=== PATIENT | male | born 1975 | race Caucasian/White ===

== ENCOUNTER 2016-11-01 18:28 | Observation (INO) | payer SELFPAY ==
--- NOTE | ~2016-11-01 | DS ---
Unit #: [id number] #: [id number] Patient: ELLYN BOOTH [id number] [address] [place], [place] [address] [id number] I MR#: [id number] NAME: ELLYN BOOTH. ROOM: [facility] Age: 40 Sex: M Admission Date: 11/02/2016 : 1975 Discharge Date: 11/02/2016 Attending Physician: Cj Mckeon M.D. Primary Care Physician: No Primary Care Physician DISCHARGE SUMMARY ADMITTING DIAGNOSES 1. Chest pain. 2. Probable obstructive sleep apnea. DISCHARGE DIAGNOSES 1. Noncardiac chest pain. 2. Aortic root dilation. 3. Probable obstructive sleep apnea. 4. Left ventricular hypertrophy. 5. Hypertension. PROCEDURES PERFORMED 1. Planned treadmill stress test, which he reached suboptimal performance with only 4 minutes of exercise. Stopping due to shortness of breath but no chest pain. No ischemia noted with EKG. 2. He completed a 2D echocardiogram, which showed a dilated aortic root, as well as some LVH. Otherwise normal. This is per Dr. Fernandez, as that report is not available to me at this time. HOSPITAL COURSE Mr. 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 It resolved many hours later, even after treatment in the emergency room. He was evaluated this morning by Dr. Fernandez who recommended a stress test, as well as 2D echocardiogram. These were completed as stated above. He is currently having no discomfort. I have explained to him the seriousness of the need to treat his sleep apnea, as well as need to treat hypertension. He voices understands. Currently he is feeling well with no complaints of chest pain or shortness of breath. Temperature 98.4, pulse 74, respirations 18, blood pressure 141/96, 99% oxygenated on room air. He is 370 pounds. PERTINENT LABS DURING HOSPITALIZATION Troponin less than 0.03 x2 and less than 0.05 x2 at point of care. D-Dimer 261. Sodium 136, potassium 4.2, glucose 96, BUN 14, creatinine 1.0, AST 21, ALT 27, albumin 4.1. Hemoglobin 14.8, hematocrit 44.8, platelets 294, and white blood cell count 9.5. DISCHARGE MEDICATION Lisinopril 10 mg daily. DISCHARGE INSTRUCTIONS 1. Low sodium diet. 2. Activity as tolerated. Unit #: [id number] #: [id number] Patient: ELLYN BOOTH FOLLOW VISIT With Dr. Mckeon in the next three to four weeks. He will need to follow up with Dr. Pollock with pulmonary for outpatient sleep study. I have also encouraged him to follow up with primary care for routine followup as well regarding his tolerance to the lisinopril and also to maintain medical compliance. Dictated by... Pablito Mcrae/rayna TD: 11/04/2016 09:48 JOB #: [id number] DISCHARGE SUMMARY Page 1 of 1 X X DISCHARGE SUMMARY
--- NOTE | ~2016-11-01 | EKG ---
PATIENT: ELLYN HUTCHISON UNIT #: [id number] Ventricular Rate: 79 BPM Atrial Rate: 79 BPM P-R Interval: 174 ms QRS Duration: 108 ms Q-T Interval: 382 ms QTC Calculation(Bezet): 438 ms P [place]: 28 degrees Calculated R [place]: 31 degrees Calculated T [place]: 42 degrees Diagnosis Line: Normal sinus rhythm Diagnosis Line: Normal ECG Diagnosis Line: No previous ECGs available Diagnosis Line: Confirmed by SHELLEY ZAMORA MD ([id number]) on Diagnosis Line: 11/05/2016 9:43:05 AM INTERPRETING MD: JEREMY
--- NOTE | ~2016-11-01 | ST ---
Unit #: [id number] #: [id number] Patient: ELLYN HUTCHISON [id number] [address] [address] [id number] I MR#: [id number] NAME: ELLYN HUTCHISON : 1975 SEX: M STUDY DATE/TIME: 11/02/2016 UNIT: [id number] ROOM: [facility] STUDY DESCRIPTION: Attending Physician: Cj Mckeon M.D. Primary Care Physician: No Primary Care Physician CARDIOLOGY REPORT EXAM Stress test. FINDINGS Baseline EKG: Normal sinus rhythm, nonspecific ST-T changes. Resting heart rate 70 per minute. Blood pressure 138/96. PROCEDURE This 40-year-old patient was exercised on a Baldomero protocol for 4 minutes and 7 seconds, achieving heart rate of 122 per minute which is less than the target heart rate. Peak blood pressure was 139/104, 160/120. Exercise was terminated because of fatigue. No ischemic change is noted. No arrhythmias noted. Blood pressure response was normal. INTERPRETATION Incomplete nondiagnostic exercise stress test due to failure to reach the target heart rate. Normal blood pressure response to exercise. No significant arrhythmias noted. Dictated by... Maira Ramirez/bjorn TD: 11/02/2016 15:51 JOB #: [id number] CARDIOLOGY REPORT Page 1 of 1 X Diego Fernandez MD CARDIOLOGY REPORT
--- NOTE | ~2016-11-01 | BMI ---
[facility] Nutrition Therapy DATE: 11/02/16 Patient: ELLYN HUTCHISON Physician: EDER Address: [address] Room/Bed: [address] [place] [address], Zip: [place] [address] Admit Date: 11/02/16 Date of : [birth year] Height: 6 1 Weight: 370 168 HIGH BMI NOTE: ANTHROPOMETRICS: HT: 6'1" WT: 168 KG BMI: 48.9 DIET: NPO RECOMMENDATIONS: 1. ONCE MEDICALLY FEASIBLE, ADVANCE THE PT TO A HEART HEALTHY DIET TO PROMOTE GRADUAL WEIGHT LOSS TOWARDS A HEALTHY BMI RANGE. Respectfully, AKILAH LIM RD, LD [facility] cc: client file
--- NOTE | ~2016-11-01 | CR72 ---
[facility] A Service of [facility] & [facility] RADIOLOGY TEXT RESULTS PATIENT: ELLYN HUTCHISON LOCATION: [facility] 322- : [birth year] UNIT #: [id number] AGE: [address]: Cj Mckeon MD SEX: M ORDER DR: [id number] [facility]. [place], [place] [address] [id number] I MR#: [id number] Acc #: [id number] NAME: ELLYN HUTCHISON : 1975 SEX: M STUDY DATE/TIME: 11/01/2016 22:11 UNIT: [address] ROOM: [facility] STUDY DESCRIPTION: CR Chest Single View Portable Attending Physician: Cj Mckeon M.D. Ordering Physician: Jean Marie Carroll D.O. Primary Care Physician: Primary Care Physician No MEDICAL IMAGING REPORT This report is preliminary unless electronic signature is present EXAM Portable chest INDICATION Left-sided chest pain today PROCEDURE Frontal view of the chest COMPARISON None FINDINGS Mild cardiomegaly. Lungs are clear. There is no visible pleural fluid or pneumothorax. IMPRESSION Mild cardiomegaly. No active process. Dictated by... Ben Breen M.D. THIS IS AN ELECTRONICALLY VERIFIED REPORT Ben Breen M.D. at 11/02/2016 10:13 PM Adolph TD: 11/02/2016 08:32 JOB #: [id number] MEDICAL IMAGING REPORT Page 1 of 1 COPY
--- NOTE | ~2016-11-01 | HP ---
Unit #: [id number] #: [id number] Patient: ELLYN BOOTH [id number] [address] [place], [place] [address] [id number] I MR#: [id number] NAME: ELLYN BOOTH. ROOM: 322 Age: 40 Sex: M Admission Date: 11/02/2016 : 1975 Attending Physician: Cj Mckeon M.D. Primary Care Physician: No Primary Care Physician HISTORY AND PHYSICAL PRIMARY CARE Dr. Vaz. CHIEF COMPLAINT Chest pain. 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 He has a history of smoking. He had some sharp pain in the left side of his chest while driving last evening. The pain was continuous and he presented to the emergency room approximately two hours later. He felt numb, weak and stiff all over during my interview this morning. This information is received from the patient as well as from record review. PRIOR CARDIAC TESTING HISTORY None. PAST MEDICAL HISTORY None. SOCIAL HISTORY He is a two-pack a day smoker for 20 years but quit three years ago. He was a 12 beer per night drinker until three years ago when he quit. He denies the use of drugs. FAMILY HISTORY No premature coronary artery disease in first degree relatives. ALLERGIES No known drug allergies. HOME MEDICATIONS None. REVIEW OF SYSTEMS CONSTITUTIONAL: He denies any fever, chills, flu-like symptoms or unintentional weight loss. SKIN: He denies any rashes, ulcerations or wounds. HEAD: He denies any increase in headaches. EYES: He denies any sudden change in vision. EARS: He denies any sudden change in hearing. BLEEDING: He denies epistaxis, hemoptysis, hematuria or melena. THROAT: He denies any problems swallowing. Unit #: [id number] #: [id number] Patient: ELLYN BOOTH LUNGS: He denies any wheeze, cough or shortness of breath. CHEST: Positive for pain but no palpitations, tachycardia, PND or orthopnea. He has been told that he needs a sleep study and that he quits breathing at night but he has resisted this and refused. GASTROINTESTINAL: He denies any nausea, vomiting, diarrhea, constipation or change in his stools. GENITOURINARY: He denies any burning or urgency. EXTREMITIES: He denies any swelling or increased pain with walking. NEUROLOGIC: He denies any numbness, tingling, seizures, stroke-like symptoms, dizziness, unsteadiness or falls. PHYSICAL EXAMINATION GENERAL APPEARANCE: Well-developed, well-nourished white male in no acute distress resting in the bed. VITAL SIGNS: Blood pressure 125/82. Heart rate 75. Respiration 16. Temperature 98.4. 95% oxygenated on room air. Weight 370 lb. SKIN: No obvious rashes or ulcerations noted. HEENT: Eyes: PERRLA. No xanthelasma. Oral: Poor dentition. Moist mucous membranes. No pallor. NECK: No carotid bruits auscultated bilaterally. Jugular vein distension is difficult to assess. SPINE: No scoliosis. CHEST: Clear to auscultation bilaterally. No wheezes, rales or rhonchi. CARDIAC: S1, S2. No murmur, rub, gallop or lift. ABDOMEN: Soft, nontender. Positive bowel sounds. EXTREMITIES: Bilateral pedal pulses 2+. No edema. NEUROLOGIC: Alert and oriented x3. Speech is clear. No obvious neuro deficits. DIAGNOSTIC STUDIES LABORATORY: Hemoglobin 14.8, hematocrit 44.8, platelets 294, WBC count 9.5. Sodium 139, potassium 4.2, glucose 96, BUN 14, creatinine 1.0, AST 21, ALT 27, albumin 4.1. Troponin less than 0.05 x2 at point of care. D-dimer 261 which is within normal limits. Repeat troponin was less than 0.03 12 hours later after the first troponin and latest troponin was also less than 0.03. CARDIOVASCULAR: EKG shows normal sinus rhythm with no other abnormalities. IMPRESSION 1. Chest pain. 2. Probable obstructive sleep apnea. PLAN Plain treadmill stress test and a 2-D echocardiogram and further recommendations based on the above-mentioned testing. Dr. Fernandez will also evaluated at the bedside and delineated this plan. Dictated by Morelia Cantu A.P.R.N. for Maira Ramirez/loan TD: 11/02/2016 14:12 JOB #: [id number] Unit #: [id number] #: [id number] Patient: ELLYN BOOTH HISTORY AND PHYSICAL Page 1 of 1 X X HISTORY AND PHYSICAL
[2016-11-01 18:56] LABS: BASOPHIL# 0.1 X10e3 (0-0.3); EOSINOPHIL# 0.1 X10e3 (0-0.7); EOSINOPHIL% 0.8 % (0.0-7.0); HEMATOCRIT 44.8 % (38.0-50.0); HEMOGLOBIN 14.8 gm/dL (13.0-16.0); LYMPHOCYTE# 2.6 X10e3 (1.0-3.5); MEAN CELL VOLUME 87.9 FL (83-96); MEAN CORPUSCULAR HEMOGLOBIN 29.1 PG (28-34); MEAN CORPUSCULAR HGB CONC 33.1 g/dL (30-36); MEAN PLATELET VOLUME 8.1 FL (6.5-11.5); MONOCYTE# 0.6 X10e3 (0-1.0); MONOCYTE% 6.8 % (3.0-12.0); NEUTROPHIL% 63.4 % (40-75); PLATELET COUNT 294 X10e3 (140-420); RED CELL DISTRIBUTION WIDTH 14.2 % (11.0-15.5); WHITE BLOOD COUNT 9.5 X10e3 (4.0-10.5)
[2016-11-01 19:07] LABS: DIFF IND NO
[2016-11-01 19:16] LABS: ALBUMIN SERUM 4.1 g/dL (3.5-5.0); BILIRUBIN, DIRECT 0.1 mg/dL (0.0-0.2); BILIRUBIN,INDIRECT 0.5 mg/dL (0.0-0.9); BILIRUBIN,TOTAL 0.6 mg/dL (0.2-2.0); GLOM FILT RATE Estimated 95.1 mL/min (>60); POTASSIUM 4.2 mmol/L (3.5-5.1); PROTEIN TOTAL SERUM 7.6 g/dL (6.0-8.3)
[2016-11-01 20:25] LABS: POC - CKMB <1.0 ng/mL (0.0-7.9); POC - TROPONIN <0.05 ng/mL (<=0.05)
[2016-11-01 23:08] LABS: POC - CKMB <1.0 ng/mL (0.0-7.9); POC - TROPONIN <0.05 ng/mL (<=0.05)
[2016-11-02] MEDS ORDERED: NO MEDICATIONS (02:59)
[2016-11-02 07:59] LABS: %MB 1.2 % (0.0-4.0); MB 1.2 ng/ml
[2016-11-02 11:46] LABS: %MB 1.3 % (0.0-4.0); MB 1.2 ng/ml
[2016-11-02] MEDS ORDERED: ZESTRIL10 M1 PO (16:04)
== END 2016-11-02 15:25 | disposition home or self-care (01) | DRG 313 ==
LOC: CED 18:28 → CEDOF 11-02 01:45 → CED 11-02 01:53 → C3A PCU 11-02 02:37 → CEDOF 11-02 02:37 → C3A PCU 11-02 02:37
PROVIDERS: Emergency Medicine
DX: R07.89 Other chest pain (principal); I77.810 Thoracic aortic ectasia; I51.7 Cardiomegaly; I10 Essential (primary) hypertension; I07.1 Rheumatic tricuspid insufficiency; Z87.891 Personal history of nicotine dependence
CPT/HCPCS: 71010; 80048; 80061; 80076; 82550; 82553; 84484; 85025; 85379; 93005; 93017; 99285; C8929; G0378; Q9957